=== PATIENT | female | born 2000 | race Caucasian/White ===

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

== ENCOUNTER 2023-11-29 20:02 | Emergency (ER) | payer SELFPAY ==
[2023-11-29 20:03] VITALS: PULSE 131; RESP 22; TEMP 36.6; O2SAT 98; BMI 19.8
[2023-11-29 20:10] VITALS: BP 113/80; PULSE 115; RESP 20
[2023-11-29] MEDS: MethylPREDNISolone 125 MG/2 ML Vial IV (20:28)
[2023-11-29] MEDS: DiphenhydrAMINE 50 MG/ML Syringe IV (20:28)
--- NOTE | 2023-11-29 20:38 | EX.ED.DYSGE1 ---
HPI History of Present Illness Chief Complaint: Allergic Reaction Narrative Narrative: Chief complaint and HPI: Multiple bee stings. 23-year-old female with honeybees presents for evaluation of multiple bee stings. Patient has no allergy to bees that she knows of. She states this evening she went out to the hive when her honeybees accidentally entered into her suit. She states that she was stung by multiple bees all over her body. She states this happened approximately at 7:30 PM. She endorses hives and pruritus. She denies any chest pain, shortness of breath, nausea, vomiting, wheezing, difficulty swallowing, swelling, diarrhea. Review of systems: See HPI Medications: As listed on the chart Allergies: As listed on the chart PFSH: Per chart Vital signs: As listed on the chart. Reviewed. Physical exam: Gen: A&O x3, NAD Head: Normocephalic, atraumatic Eyes: No sclera icterus, conjunctiva clear, PERRL, EOMI ENT: Moist mucous membranes, posterior oropharynx unremarkable, uvula midline, no oral swelling, no enlargement of the tongue, no angioedema of the face, tolerating secretions Neck: Trachea midline, No JVD, Full ROM, no swelling CV: RRR, no murmurs, no peripheral edema Resp: Lungs CTA BL, no w/r/c, no stridor GI: Abd soft, non-distended, non-tender, no r/r/g Musc: Full ROM, no deformity Skin: Warm, dry, diffuse urticaria, multiple bee stings throughout the body without stinger Neuro: Alert, oriented, grossly intact, sensation intact Psych: Cooperative, appropriate mood and affect [facility] Medical History unable to obtain Home Medications ?Medication ?Instructions ?Recorded ?Last Taken ?Type diphenhydramine HCl 50 mg tablet 50 mg PO Q6H PRN itching 5 days 11/29/23 Unknown Rx (Benadryl Allergy) #20 tabs epinephrine 0.3 mg/0.3 mL 0.3 mg (0.3 mL) IM Q10M PRN PRN 11/29/23 Unknown Rx injection, auto-injector anaphylaxis 12 months #2 ea famotidine 20 mg tablet (Pepcid AC) 20 mg PO DAILY 5 days #5 tabs 11/29/23 Unknown Rx prednisone 20 mg tablet 40 mg (2 x 20 mg) PO DAILY 5 days 11/29/23 Unknown Rx #10 tabs Allergy/AdvReac Type Severity Reaction Status Date / Time No Known Allergies Allergy Verified 11/29/23 20:04 Social History Smoking Status: Unknown if ever smoked EXAM Physical Exam Const Vital Signs: 11/29/23 20:03 11/29/23 20:10 Temperature 97.8 F Temperature Source Temporal Pulse Rate 131 H 115 H Respiratory Rate 22 H 20 H Blood Pressure 113/80 Blood Pressure Mean 91 Pulse Ox 98 Oxygen Delivery Method Room Air MDM MDM MDM Narrative Medical decision making narrative: 23-year-old female presents for evaluation after multiple bee stings. Patient has no reported allergies to bees. On presentation, patient was originally tachycardic she was very nervous. Upon examining her, her nerves improved as well as her tachycardia. See physical exam findings. Differential diagnosis includes but is not limited to allergic reaction, toxoid reaction, anaphylaxis. Patient has no symptoms of toxoid reaction and anaphylaxis at this time. No epinephrine needed. Benadryl, Pepcid, Solu-Medrol ordered. Patient is not up-to-date on tetanus therefore tetanus ordered. Patient will be monitored in emergency department. On reevaluation, patient sleeping comfortably in the room. Her urticaria has improved as well as her itching. Vitals are stable. Again no systemic symptoms. Patient is stable to discharge home. She was educated on the possibility of a toxic reaction due to her multiple stings. She was made aware that the symptoms can be delayed up to 8 to 24 hours. She was educated that symptoms include lightheadedness, headache, nausea, vomiting, diarrhea. She was educated that if she develops any of these symptoms she does return back to the ED. We will send her home with an epinephrine pen to inject herself if she does develop the symptoms. She confirmed understanding the plan. She was educated to stay away from her honeybees for at least 1 week. Will send her home with prednisone, Pepcid, Benadryl. She confirmed understand the plan. Patient stable to discharge home. Follow-up with PCP. Impression: 1. Allergic reaction secondary to bee sting 2. Multiple bee stings Discharge Plan Triage Chief Complaint: Allergic Reaction ED Provider: Adan Lauren Dx/Rx/DC Orders Clinical Impression: Allergy to bee sting Instructions: Understanding Hives (Urticaria), ED BEE STING General Allergic Rxn, ED Insect Sting, Local Reaction Prescriptions: New prednisone 20 mg tablet 40 mg PO DAILY 5 Days Qty: 10 0RF famotidine [Pepcid AC] 20 mg tablet 20 mg PO DAILY 5 Days Qty: 5 0RF Benadryl Allergy 50 mg tablet 50 mg PO Q6H PRN (Reason: itching) 5 Days Qty: 20 0RF epinephrine 0.3 mg/0.3 mL auto-injector 0.3 mg IM Q10M PRN PRN (Reason: anaphylaxis) 360 Days Qty: 2 0RF Rx Instructions: for 2 doses Primary Care Provider: Care Physician,No Primary Referrals: Care Physician,No Primary [Primary Care Provider] - NOT,DEFINED [Non-Staff] - Activity Restrictions/Additional Instructions: Follow-up with your primary care physician. Monitor for worsening symptoms at home. If you develop worsening symptoms you need to return back to the ED. Stay away from your honeybees for at least 1 week. Print Language: [place]ian Disposition Disposition: Home, Self Care
[2023-11-29] MEDS: Famotidine 200 MG/20 ML MDV 20 MG in 0.9% Normal Saline (Pres. free 8 ML 300 MG IV (20:43)
[2023-11-29 21:59] VITALS: BP 108/75; PULSE 85; RESP 17; TEMP 36.6; O2SAT 98
[2023-11-29] MEDS: Diphth,Pertuss(Acell),Tet Vac 0.5 ML Vial IM (22:00)
[2023-11-29 22:03] VITALS: BP 106/75; PULSE 88; RESP 18; O2SAT 99
== END 2023-11-29 22:17 | disposition home or self-care (01) ==
PROVIDERS: Emergency Provider Surgery; Visit Provider Surgery
DX: T63.441A Toxic effect of venom of bees, accidental (unintentional), initial encounter (principal); L50.0 Allergic urticaria; Z23 Encounter for immunization
CPT/HCPCS: 90715; 96365; 96375; 99283; A4216; J3490